=== PATIENT | male | born 1955 | race Caucasian/White ===

== ENCOUNTER → 2017-03-17 | Outpatient (CLI) | payer BC ==
--- NOTE | 2017-03-17 10:51 | RADIOLOGY REPORT (SQ) ---
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 TECHNIQUE: CT scan of the abdomen and pelvis performed using helical scanning technique with dynamic intravenous contrast injection. No oral contrast. Images reviewed with lung, soft tissue, and bone windows. Reconstructed coronal and sagittal MPR images reviewed. Delayed images for evaluation of the urinary system also acquired. All images stored on PACS. All CT scanners at this facility use dose modulation, iterative reconstruction, and/or weight based d osing when appropriate to reduce radiation dose to as low as reasonably achievable (ALARA). [facility]: Dose Right [facility]: CareDose [facility]: Dose Right [facility]: Teradose 4D [facility]: BlackArrow CONTRAST TYPE AND DOSE: contrast/concentration: Isovue 370.00 mg/ml; Total Contrast Delivered: 85.0 ml; Total Saline Delivered: 69.0 ml RENAL FUNCTION: Creatinine 0.9 RADIATION DOSE: Up-to-date CT equipment and radiation dose reduction techniques were employed. CTDIv ol: 5.9 - 6.9 mGy. DLP: 723 mGy-cm.. LIMITATIONS: None. FINDINGS: LOWER CHEST: A faintly defined 8 mm ground-glass nodule is present adjacent to the fissure on the right on image 3 series 4. LIVER: Several small low-density lesions are present in the liver suggestive of cysts. The smaller o matthew are too small characterize. SPLEEN: Normal size. No focal lesions. PANCREAS: No masses. No significant calcifications. No adjacent inflammation or peripancreatic fluid collections. Pancreatic duct not dilated. GALLBLADDER: No identified stones by CT criteria. No inflammatory changes to suggest cholecystitis. ADRENAL GLANDS: There is 24 x 37 mm low-density nodule in the right adrenal gland. There is a 24 x 2 6 mm low-density lesion in the left adrenal gland. There is rapid washout between the initial contra st study and the delayed images. RIGHT KIDNEY AND URETER: No solid masses. No significant calcifications. No hydronephrosis or hyd roureter. LEFT KIDNEY AND URETER: No solid masses. No significant calcifications. No hydronephrosis or hydr oureter. AORTA AND VESSELS: No aneurysm. No dissection. Renal arteries, SMA, celiac without stenosis. RETROPERITONEUM: No retroperitoneal adenopathy, hemorrhage or masses. BOWEL AND PERITONEAL CAVITY: Occasional diverticula arise from the sigmoid colon. There are no assoc iated inflammatory changes. APPENDIX: Normal. PELVIS: The urinary bladder is normal. The prostate gland is prominent. ABDOMINAL WALL: No masses. No hernias. BONES: No osseous metastases are seen. OTHER: No other significant finding. IMPRESSION: 1. There is an 8 mm ground-glass nodule in the right lung. Follow-up as per Fleischner criteria below. 2. There are bilateral adrenal nodules. The apparent rapid washout is suggestive of benignity. 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 3. There are what appear to be small cysts in the liver. 4. A couple of sigmoid diverticula are present. 5. No metastases are appreciated. COMMENT: Fleischner Criteria for Ground Glass Nodules: >6mm ground glass single nodule: CT 6-12 mo, then CT every 2 yr until 5 yr TECHNICAL DOCUMENTATION: JOB ID: [id number] Quality ID # [id number]: Final reports with documentation of one or more dose reduction techniques (e.g., Au tomated exposure control, adjustment of the mA and/or kV according to patient size, use of iterative reconstruction technique) 2010 [employer]- All Rights Reserved
--- NOTE | 2017-03-17 14:28 | RADIOLOGY REPORT (SQ) ---
EXAM DESCRIPTION: NM WHOLE BODY BONE SCAN COMPLETED DATE/TIME: 03/17/2017 12:26 pm REASON FOR STUDY: PROSTATE CA (C61 C61 MALIGNANT NEOPLASM OF PROSTATE COMPARISON: No available imaging studies for comparison. RADIONUCLIDE AND DOSE: 21.7 millicuries Tc99m HDP. The route of agent administration: Intravenous. ADDITIONAL DRUGS AND DOSES: None. TECHNIQUE: Routine delayed images at 3 hour post radionuclide injection acquired of the bony skeleto n including anterior and posterior whole-body projections and additional focused images as needed. LIMITATIONS: None. FINDINGS: BONES: There are linear areas of activity involving the cortex of the right and left femur and right and left tibia with vaguely nodular appearance. Focal areas of activity in the shoulders, right sternoclavicular joint, and left foot probably due to degenerative change. KIDNEYS: Symmetric excretion without obstruction. OTHER: No other significant finding. IMPRESSION: AREAS OF ACTIVITY IN THE FEMURS AND TIBIA BILATERALLY. RECOMMEND CORRELATION WITH X-RAY OF BOTH LEGS. COMMENT: PQRS [id number]: Current bone scan is compared with any available plain radiographs, prior bone scans, and CT/MRI. TECHNICAL DOCUMENTATION: JOB ID: [id number] [employer]- All Rights Reserved
== END ==
LOC: RAD 07:39
PROVIDERS: ATTEND Urology
DX: C61 Malignant neoplasm of prostate (principal); E27.9 Disorder of adrenal gland, unspecified
CPT/HCPCS: 82565; 78306; 74177; A9561; Q9969